=== PATIENT | female | born 1965 | race Caucasian/White ===

== ENCOUNTER 2017-10-14 08:52 | Emergency (ER) | payer OTHER ==
[~2017-10-14] VITALS: Ht 175.3 cm; Wt 72.8 kg
[2017-10-14 09:46] LABS: HEMATOCRIT 41.1 % (36.0-46.0); HEMOGLOBIN 14.5 G/DL (11.9-15.5); MCH 32.2 PG (29.0-34.0); MCHC 35.3 G/DL (30.0-36.0); MCV 91.3 FL (83-99); PLATELET COUNT 244 K/uL (156-360); RBC DIS.WIDTH-CV 11.7 % (11.8-14.6); RBC DIS.WIDTH-SD 39.3 % (39-53); WHITE BLOOD COUNT 9.8 K/uL (4.1-10.2)
[2017-10-14 09:57] LABS: ALBUMIN 4.2 g/dL (3.2-4.8); CHLORIDE 108 mEq/L (99-109); POTASSIUM 4.5 mEq/L (3.7-5.4)
[2017-10-14 09:58] LABS: SODIUM 140 mEq/L (136-147)
[2017-10-14 10:00] LABS: GLUCOSE 197 mg/dL (70-99); TOTAL PROTEIN 6.9 g/dL (6.4-8.3)
[2017-10-14 10:02] LABS: TOTAL BILIRUBIN 0.6 mg/dL (0.0-1.0)
[2017-10-14 10:03] LABS: ALKALINE PHOSPHATASE 59 IU/L (3-129); CREATININE 1.2 mg/dL (0.6-1.3); GFR ESTIMATE (CALCULATED) 50 mL/min/
[2017-10-14 10:05] LABS: AST (GOT) 16 IU/L (2-34); UREA NITROGEN (BUN) 26 mg/dL (9-23)
[2017-10-14 10:06] LABS: ALT (GPT) 13 IU/L (3-49)
[2017-10-14 10:17] LABS: QUANTITATIVE HCG < 4.0 MIU/ML
[2017-10-14 10:59] LABS: APPEARANCE CLEAR ((CLEAR)); BILIRUBIN NEGATIVE; BLOOD NEGATIVE; COLOR YELLOW ((YELLOW)); GLUCOSE (STRIP) 50; KETONES 80; LEUKOCYTES NEGATIVE; NITRITE NEGATIVE; PROTEIN (STRIP) 30; SPECIFIC GRAVITY 1.026 (1.000-1.030); UCUL ADDED? NO; UROBILINOGEN 0.2 MG/DL (0.2-1.0)
[2017-10-14] MEDS ORDERED: PERCOCET 5/31 TABLET PO (12:46)
[2017-10-14] MEDS ORDERED: MOTRIN600 MG PO (12:46)
[2017-10-14] MEDS ORDERED: ZOFRAN4 MG PO (12:46)
[2017-10-14 13:05] VITALS: BP 122/72
== END 2017-10-14 13:06 | disposition home or self-care (01) ==
LOC: EME 08:52
DX: N20.0 Calculus of kidney (principal); K58.9 Irritable bowel syndrome, unspecified
CPT/HCPCS: 74176; 80053; 81003; 84702; 85027; 99281; 99284; J1885; J2550

== ENCOUNTER 2017-10-16 15:47 | Inpatient (IN) | payer OTHER ==
[~2017-10-16] VITALS: Ht 175.3 cm; Wt 70.1 kg
[~2017-10-16 15:47] MED LIST: MOTRIN600 MG PO; PERCOCET 5/31 TABLET PO; ZOFRAN4 MG PO
[2017-10-16 16:54] LABS: HEMATOCRIT 40.8 % (36.0-46.0); HEMOGLOBIN 14.4 G/DL (11.9-15.5); MCH 32.1 PG (29.0-34.0); MCHC 35.3 G/DL (30.0-36.0); MCV 91.1 FL (83-99); RBC DIS.WIDTH-CV 11.9 % (11.8-14.6); RBC DIS.WIDTH-SD 40.1 % (39-53); RED BLOOD COUNT 4.48 M/uL (3.80-5.20); WHITE BLOOD COUNT 18.9 K/uL (4.1-10.2)
[2017-10-16 16:57] LABS: ALBUMIN 3.7 g/dL (3.2-4.8); CHLORIDE 102 mEq/L (99-109); SODIUM 138 mEq/L (136-147)
[2017-10-16 16:59] LABS: TOTAL PROTEIN 6.8 g/dL (6.4-8.3)
[2017-10-16 17:01] LABS: GLUCOSE 84 mg/dL (70-99)
[2017-10-16 17:03] LABS: ALKALINE PHOSPHATASE 67 IU/L (3-129)
[2017-10-16 17:06] LABS: ALT (GPT) 24 IU/L (3-49); LIPASE 12 U/L (1.0-51.0)
[2017-10-16 17:12] LABS: QUANTITATIVE HCG < 4.0 MIU/ML
[2017-10-16 17:34] LABS: AST (GOT) 32 IU/L (2-34); CREATININE 2.7 mg/dL (0.6-1.3); GFR ESTIMATE (CALCULATED) 20 mL/min/; TOTAL BILIRUBIN 0.8 mg/dL (0.0-1.0); UREA NITROGEN (BUN) 59 mg/dL (9-23)
[2017-10-16 17:40] LABS: PLAT.SUFFICIENCY DECREASED
[2017-10-16 17:40] LABS: APPEARANCE CLOUDY ((CLEAR)); BILIRUBIN NEGATIVE; BLOOD MODERATE; COLOR YELLOW ((YELLOW)); GLUCOSE (STRIP) NEGATIVE; KETONES NEGATIVE; LEUKOCYTES MODERATE; NITRITE NEGATIVE; PROTEIN (STRIP) 100; SPECIFIC GRAVITY 1.023 (1.000-1.030); UROBILINOGEN 0.2 MG/DL (0.2-1.0)
[2017-10-16 17:41] LABS: PLATELET COUNT 109 K/uL (156-360)
[2017-10-16 17:49] LABS: BACTERIA RARE /HPF; EPITHELIAL CELLS RARE /HPF; HYALINE CASTS 0-5 /LPF; MUCUS TRACE /LPF; RED BLOOD CELLS 20-30 /HPF (0-5); UCUL ADDED? YES; WHITE BLOOD CELLS TNTC /HPF (0-5)
[2017-10-16] MEDS ORDERED: PEPTO-BISMOL T262 MG PO (18:40)
[2017-10-16 22:08] VITALS: BP 103/69
[2017-10-17] VITALS: BP 100/66
[2017-10-17 04:00] VITALS: BP 101/55
[2017-10-17 06:40] LABS: HEMATOCRIT 35.4 % (36.0-46.0); MCH 30.9 PG (29.0-34.0); MCHC 33.6 G/DL (30.0-36.0); MCV 91.9 FL (83-99); PLATELET COUNT 93 K/uL (156-360); RBC DIS.WIDTH-SD 40.9 % (39-53); RED BLOOD COUNT 3.85 M/uL (3.80-5.20); WHITE BLOOD COUNT 12.9 K/uL (4.1-10.2)
[2017-10-17 06:44] LABS: HEMOGLOBIN 11.9 G/DL (11.9-15.5)
[2017-10-17 06:54] LABS: CHLORIDE 109 MEQ/L (99-109); GLUCOSE 82 mg/dL (70-99); SODIUM 143 MEQ/L (136-147); UREA NITROGEN (BUN) 37 mg/dL (9-23)
[2017-10-17 06:56] LABS: CREATININE 1.4 MG/DL (0.6-1.3); GFR ESTIMATE (CALCULATED) 42 mL/min/
[2017-10-17 07:01] LABS: ATYPICAL LYMPHOCYTE 0.9 %; BAND NEUTROPHILS 13.3 % (0-8.0); LYMPHOCYTES 12.4 % (15.0-45.0); METAMYELOCYTES 0.9 %; MONOCYTES 1.7 % (0-9.0); PLAT.SUFFICIENCY DECREASED; SEG.NEUTROPHILS 70.8 % (46.0-76.0)
[2017-10-17 07:02] LABS: ABS NEUTROPHIL COUNT 10.8; EOSINOPHIL ABS CT 0
[2017-10-17 07:10] VITALS: BP 103/65
[2017-10-17 10:59] VITALS: BP 107/68; BP 123/66
[2017-10-17 15:02] VITALS: BP 120/87
[2017-10-17 23:20] VITALS: BP 115/81
[2017-10-18 07:02] LABS: HEMATOCRIT 34.5 % (36.0-46.0); MCH 32.3 PG (29.0-34.0); MCHC 34.8 G/DL (30.0-36.0); MCV 92.7 FL (83-99); PLATELET COUNT 98 K/uL (156-360); RBC DIS.WIDTH-CV 12.4 % (11.8-14.6); RBC DIS.WIDTH-SD 42.1 % (39-53); RED BLOOD COUNT 3.72 M/uL (3.80-5.20); WHITE BLOOD COUNT 10.9 K/uL (4.1-10.2)
[2017-10-18 07:39] LABS: CHLORIDE 114 MEQ/L (99-109); GFR ESTIMATE (CALCULATED) > 59 mL/min/; GLUCOSE 79 mg/dL (70-99); POTASSIUM 4.4 MEQ/L (3.7-5.4); SODIUM 145 MEQ/L (136-147)
[2017-10-18 07:43] LABS: CREATININE 0.9 MG/DL (0.6-1.3); UREA NITROGEN (BUN) 14 mg/dL (9-23)
[2017-10-18 08:17] VITALS: BP 131/91
[2017-10-18 10:27] LABS: TROP-I INTERPRETATION NEGATIVE; TROPONIN-I 0.04 ng/mL (0.0-0.30)
[2017-10-18 12:21] VITALS: BP 104/68
[2017-10-18 13:50] LABS: LIPASE 30 U/L (1.0-51.0)
[2017-10-18 16:30] LABS: TROP-I INTERPRETATION NEGATIVE; TROPONIN-I 0.03 ng/mL (0.0-0.30)
[2017-10-18 16:32] VITALS: BP 120/80
[2017-10-18 23:36] VITALS: BP 114/58
[2017-10-19 06:54] LABS: HEMATOCRIT 33.7 % (36.0-46.0); HEMOGLOBIN 11.4 G/DL (11.9-15.5); MCH 31.8 PG (29.0-34.0); MCHC 33.8 G/DL (30.0-36.0); MCV 93.9 FL (83-99); PLATELET COUNT 101 K/uL (156-360); RBC DIS.WIDTH-CV 12.7 % (11.8-14.6); RBC DIS.WIDTH-SD 43.8 % (39-53); RED BLOOD COUNT 3.59 M/uL (3.80-5.20); WHITE BLOOD COUNT 8.4 K/uL (4.1-10.2)
[2017-10-19 06:58] VITALS: BP 125/80
[2017-10-19 07:18] LABS: CHLORIDE 117 MEQ/L (99-109); CREATININE 0.7 MG/DL (0.6-1.3); GFR ESTIMATE (CALCULATED) > 59 mL/min/; GLUCOSE 86 mg/dL (70-99); POTASSIUM 4.5 MEQ/L (3.7-5.4); SODIUM 147 MEQ/L (136-147); UREA NITROGEN (BUN) 9 mg/dL (9-23)
[2017-10-19] MEDS ORDERED: ZOFRAN4 MG PO (15:02)
[2017-10-19] MEDS ORDERED: CIPROFLOXACIN500 M1 PO (15:02)
[2017-10-19 15:50] VITALS: BP 124/77
[2017-10-19 23:45] VITALS: BP 111/68
[2017-10-20 08:05] VITALS: BP 121/81
[2017-10-20] MEDS ORDERED: ZOFRAN4 MG PO (12:36)
[2017-10-20] MEDS ORDERED: CIPROFLOXACIN500 M1 PO (12:36)
== END 2017-10-20 12:46 | disposition home or self-care (01) | DRG 872 ==
LOC: EME 15:47 → 5SOUTH 19:27 → EDOF 19:27 → ENRESERV 19:33 → 5SOUTH 21:46
PROVIDERS: Internal Medicine; Physician Assistant; Physician Assistant Medical
DX: A41.51 Sepsis due to Escherichia coli [E. coli] (principal); N13.6 Pyonephrosis; K58.9 Irritable bowel syndrome, unspecified; E86.0 Dehydration; D69.6 Thrombocytopenia, unspecified; N17.9 Acute kidney failure, unspecified; K76.9 Liver disease, unspecified; Z87.442 Personal history of urinary calculi
CPT/HCPCS: 74176; 80048; 80053; 81003; 83605; 83690; 84484; 84702; 85025; 85027; 87040; 87077; 87086; 87186; 87801; 93005; 99281; 99284; 99285; J0696; J1644; J1885; J2405; J2550; J7030